=== PATIENT | female | born 1990 | race Caucasian/White ===

== ENCOUNTER 2020-04-26 19:53 | Emergency (ER) | payer OTHER, MEDICAID ==
[~2020-04-26] VITALS: Ht 167.6 cm; Wt 54.4 kg
[2020-04-26 19:53] VITALS: BP_SYST 101
[2020-04-26] MEDS ORDERED: ACETAMINOPHEN 500 MG TABLET PO ONE (20:45)
[2020-04-26 22:14] VITALS: BP_SYST 101
== END 2020-04-26 22:14 ==
LOC: SED 19:53
DX: S52.592A Other fractures of lower end of left radius, initial encounter for closed fracture (principal); V49.9XXA Car occupant (driver) (passenger) injured in unspecified traffic accident, initial encounter; Y93.89 Activity, other specified; Y92.89 Other specified places as the place of occurrence of the external cause; Y99.8 Other external cause status
CPT/HCPCS: 99283